=== PATIENT | male | born 1955 | race Caucasian/White ===

== ENCOUNTER 2018-01-17 18:57 | Observation (INO) ==
--- NOTE | 2018-01-17 19:42 | ED ---
HPI General Chief complaint: Chest Pain Stated complaint: Cardiac Complaint Time Seen by Provider: 01/17/18 19:19 Source: patient Limitations: no limitations History of Present Illness HPI narrative: The patient is a 62 year old male who presents to the [facility] emergency department with a history of chest pain that he reports is in the lower middle area of his chest that began yesterday after eating dinner between 5:30 and 6 PM. The patient reports that the pain is a tightening sensation. He reports that it has been constant and is currently a 1-2 out of 10 in severity. He reports that it feels similar to indigestion. He reports that he has not had any recent problems with indigestion as he has been on a diet and exercising regularly. He reports that he has lost 40 pounds in the last couple of months. He denies having any history of coronary artery disease. He reports that he has been experiencing some shortness of breath with exertion. He reports having nausea and actually induced vomiting 3 times today to see if this would help with his symptoms. He denies having any radiation of pain. He denies having any diaphoresis. The patient reports that he went to his local urgent care center for evaluation. He reports that this is where he receives his primary care. He reports that he had an EKG done that showed a right bundle branch block which was new for him, therefore he was sent to the emergency department for evaluation and treatment. He denies any recent prolonged travel. He denies having any lower extremity edema, calf pain, or erythema. He denies having any prior history of myocardial infarction or coronary artery disease. He reports having a history of hypertension that he treats with an [id number] supplement. He denies having any known history of hyperlipidemia or diabetes mellitus. He reports that his last laboratory studies were done a couple of years ago. On review of systems otherwise, the patient denies having any known recent fevers, cough or congestion, neck pain, abdominal pain, diarrhea, urinary symptoms, or neurologic symptoms. The patient reports that he last moved his bowels yesterday morning. He reports that he normally moves his bowels every other day. He denies having any blood in stool or black or tarry stools. Related Data Home Medications Medication Instructions Recorded Confirmed diphenhydramine HCl [Benadryl] 50 mg PO DAILY PRN 01/17/18 01/17/18 ibuprofen 400 mg PO DAILY 01/17/18 01/17/18 omeprazole magnesium [Prilosec OTC] 20 mg PO DAILY 01/17/18 01/17/18 Allergies Allergy/AdvReac Type Severity Reaction Status Date / Time No Known Allergies Allergy Unverified 01/17/18 19:33 Review of Systems ROS Unobtainable All other systems reviewed negative except as stated in HPI PMFSH History History Provided By: Patient Medical History Medical History Arthritis (Acute) Diverticulitis (Acute) GERD (gastroesophageal reflux disease) (Acute) Hiatal hernia (Acute) Hypertension (Acute) Umbilical hernia (Acute) Surgical History Surgical History H/O repair of right rotator cuff (Acute) History of right cataract surgery (Acute) History of total bilateral knee replacement (Acute) Social History Social History Substance History: No History of Abuse Second Hand Smoke Exposure: No Smoking Status: Never smoker Smoking End Date: quit 26 years ago. How Often Do You Have a Drink Containing Alcohol: Never Exam Const General: cooperative, no acute distress and well developed Nutritional Appearance: well nourished Orientation: alert, awake and oriented x3 HENMT Head: normocephalic and atraumatic Nose: no nasal discharge and no epistaxis Mouth: moist mucous membranes Eyes Sclera: normal sclerae Pupils: PERRL Neck Neck: trachea midline and no JVD Resp Effort & Inspection: no use of accessory muscles Auscultation: clear to auscultation bilaterally Cardio Rate: tachycardic (Sinus tachycardia in the upper 90s to low 100s ) Rhythm: regular rhythm Heart Sounds: no gallops, no murmurs and no rubs GI Inspection: abnormal to inspection (The patient has a palpable umbilical hernia that is easily reducible on examination.) and non-distended Palpation: soft, no hepatosplenomegaly and nontender Auscultation: normal bowel sounds Back/Spine/Pelvis Back: no CVA tenderness Skin General: dry skin (warm) Neuro General: alert, awake and oriented x3 Cranial Nerves: other (No facial asymmetry.) Speech: speech normal Motor: no movement abnormalities noted Extrem General: normal to inspection (No calf tenderness on palpation.), no clubbing, no cyanosis and no edema Psych Mood: congruent mood Affect: normal affect Judgment: judgment good Course Initial Documented Vital Signs Pulse Rate 102 H 01/17/18 19:18 Respiratory Rate 18 01/17/18 19:18 Blood Pressure 188/112 H 01/17/18 19:18 Pulse Oximetry 95 01/17/18 19:18 Last Documented Vital Signs Temperature 97.5 F L 01/18/18 04:00 Pulse Rate 80 01/18/18 04:00 Respiratory Rate 17 01/18/18 04:00 Blood Pressure 132/83 01/18/18 04:00 Pulse Oximetry 95 01/18/18 04:00 Medical Decision Making MDM Narrative Medical decision making narrative: During the course of the patient's emergency department visit, the patient's history, examination, and differential diagnosis were reviewed with the patient. The patient was placed on a costume director with oximetry and frequent blood pressure monitoring. The patient had IV access obtained and blood work sent for analysis. Diagnostic evaluation was started for this patient's reported chest tightness that began yesterday. The patient was initially provided aspirin 324 mg p.o. 1, nitroglycerin sublingual every 5 minutes 3 as needed chest pain. Nitroglycerin 1 inch to the chest wall was applied. The patient's laboratory studies are remarkable for a white count of 12, platelets 347, neutrophil percent 90.2, hemoglobin is 14.6, PT 10.5, PTT 28.9, d -dimer is 0.43 decreasing likelihood of pulmonary embolism in this patient with no other significant risk factors. Chemistries remarkable for troponin I of less than 0.02, glucose 110, BUN 23, BNP is 5, lipase 119, magnesium 2.2. The patient had a chest x-ray done that shows no evidence of acute cardiopulmonary disease. The patient's results were discussed with the patient, including the plan of care. I explained that further testing and/ or monitoring is indicated based on the patient's history, examination, and/ or laboratory findings. Therefore, I recommended admission for additional evaluation. The patient expressed understanding and was agreeable with this plan. The patient was admitted to the hospital in stable condition and sent to a bed under the care of the chest pain center. Differential Diagnosis Differential Diagnosis: Acute coronary syndrome, versus pulmonary embolism, versus aortic dissection, versus pneumonia, versus acid reflux, versus new onset congestive heart failure Medical Records Medical records reviewed: Yes I reviewed the patient's medical records. Lab Data Lab results reviewed: Yes I reviewed the patient's lab results. Result diagrams: 01/17/18 19:40 01/17/18 19:40 Lab Results 01/17/18 01/17/18 01/17/18 Range/Units 19:40 19:40 19:40 WBC 12.0 H (4.0-11.0) th/mm3 RBC 4.61 (4.50-5.90) mil/mm3 Hgb 14.6 (13.0-17.0) gm/dL Hct 41.0 (39.0-51.0) % MCV 88.9 (80.0-100.0) fL MCH 31.7 (27.0-34.0) pg MCHC 35.6 (32.0-36.0) % RDW 15.2 (11.6-17.2) % Plt Count 347 (150-450) th/mm3 MPV 8.0 (7.0-11.0) fL Neut % (Auto) 90.2 H (16.0-70.0) % Lymph % (Auto) 4.5 L (9.0-44.0) % [place] % (Auto) 4.9 (0.0-8.0) % Eos % (Auto) 0.2 (0.0-4.0) % Baso % (Auto) 0.2 (0.0-2.0) % Neut # (Auto) 10.8 H (1.8-7.7) th/mm3 Lymph # (Auto) 0.5 L (1.0-4.8) th/mm3 [place] # (Auto) 0.6 (0.0-0.9) th/mm3 Eos # (Auto) 0.0 (0.0-0.4) th/mm3 Baso # (Auto) 0.0 (0.0-0.2) th/mm3 WBC Differential . Differential Comment Auto diff final PT 10.5 (9.8-11.6) sec INR 1.0 Ratio APTT 28.9 (24.3-30.1) sec D-Dimer Quant (PE/DVT) 0.43 (0.00-0.50) mg/L FEU Sodium 139 (136-145) meq/L Potassium 4.0 (3.5-5.1) meq/L Chloride 105 (98-107) meq/L Carbon Dioxide 25.4 (21.0-32.0) meq/L Anion Gap 9 (5-15) meq/L BUN 23 H (7-18) mg/dL Creatinine 0.83 (0.60-1.30) mg/dL Estimated GFR Greater than 89 (>89) mL/min Random Glucose 110 H (74-106) mg/dL Calcium 9.0 (8.5-10.1) mg/dL Magnesium 2.2 (1.5-2.5) mg/dL Total Bilirubin 0.5 (0.2-1.0) mg/dL AST 17 (15-37) U/L ALT 32 (12-78) U/L Alkaline Phosphatase 101 (45-117) U/L Total Creatine Kinase 59 (39-308) U/L Troponin I Less than 0.02 L (0.02-0.05) ng/mL B-Natriuretic Peptide (0-100) pg/mL Total Protein 7.5 (6.4-8.2) g/dL Albumin 3.6 (3.4-5.0) g/dL Lipase 119 (73-393) U/L 01/17/18 01/17/18 01/18/18 Range/Units 19:40 22:50 01:40 WBC (4.0-11.0) th/mm3 RBC (4.50-5.90) mil/mm3 Hgb (13.0-17.0) gm/dL Hct (39.0-51.0) % MCV (80.0-100.0) fL MCH (27.0-34.0) pg MCHC (32.0-36.0) % RDW (11.6-17.2) % Plt Count (150-450) th/mm3 MPV (7.0-11.0) fL Neut % (Auto) (16.0-70.0) % Lymph % (Auto) (9.0-44.0) % [place] % (Auto) (0.0-8.0) % Eos % (Auto) (0.0-4.0) % Baso % (Auto) (0.0-2.0) % Neut # (Auto) (1.8-7.7) th/mm3 Lymph # (Auto) (1.0-4.8) th/mm3 [place] # (Auto) (0.0-0.9) th/mm3 Eos # (Auto) (0.0-0.4) th/mm3 Baso # (Auto) (0.0-0.2) th/mm3 WBC Differential Differential Comment PT (9.8-11.6) sec INR Ratio APTT (24.3-30.1) sec D-Dimer Quant (PE/DVT) (0.00-0.50) mg/L FEU Sodium (136-145) meq/L Potassium (3.5-5.1) meq/L Chloride (98-107) meq/L Carbon Dioxide (21.0-32.0) meq/L Anion Gap (5-15) meq/L BUN (7-18) mg/dL Creatinine (0.60-1.30) mg/dL Estimated GFR (>89) mL/min Random Glucose (74-106) mg/dL Calcium (8.5-10.1) mg/dL Magnesium (1.5-2.5) mg/dL Total Bilirubin (0.2-1.0) mg/dL AST (15-37) U/L ALT (12-78) U/L Alkaline Phosphatase (45-117) U/L Total Creatine Kinase 63 59 (39-308) U/L Troponin I Less than 0.02 L Less than 0.02 L (0.02-0.05) ng/mL B-Natriuretic Peptide 5 (0-100) pg/mL Total Protein (6.4-8.2) g/dL Albumin (3.4-5.0) g/dL Lipase (73-393) U/L Imaging Data Radiologist's impression: Chest X-Ray 01/17/18 19:33 CONCLUSION: Negative for acute process ECG Data Attestation: I personally reviewed and interpreted this ECG as follows: Interpretation: The patient had a EKG done on arrival that shows a sinus rhythm heart rate of 98, QRS duration 137 the the [address]-T wave abnormalities are noted with a right bundle branch block noted. T waves are inverted in lead III, aVF, V1, V2, V3, V4. Discharge Plan Discharge Disposition Patient Disposition: 30 Still Patient Discharge Details Diagnosis: Chest pain, rule out acute myocardial infarction Physicians Team ED Provider: Sandy Trinidad Primary Care Provider: Primary Care Gissel Johnson Attending Provider: Jeanmarie Houser Discharge Interventions Interventions: ED Discharge Assessment Last Done: 01/18/18 01:44 Vital Signs Last Done: 01/17/18 21:30 Status ED Status: Left Department Discharge Information Discharge Date/Time: 01/18/18 01:44
[2018-01-17 20:01] LABS: Baso % (Auto) 0.2 % (0.0-2.0); Eos % (Auto) 0.2 % (0.0-4.0); Hemoglobin 14.6 gm/dL (13.0-17.0); Lymph # (Auto) 0.5 th/mm3 (1.0-4.8); Lymph % (Auto) 4.5 % (9.0-44.0); Mean Corpuscular HGB Conc 35.6 % (32.0-36.0); Mean Corpuscular Hemoglobin 31.7 pg (27.0-34.0); Mean Corpuscular Volume 88.9 fL (80.0-100.0); Mono # (Auto) 0.6 th/mm3 (0.0-0.9); Mono % (Auto) 4.9 % (0.0-8.0); Neut # (Auto) 10.8 th/mm3 (1.8-7.7); Neut % (Auto) 90.2 % (16.0-70.0); Platelet Count 347 th/mm3 (150-450); Red Blood Count 4.61 mil/mm3 (4.50-5.90); Red Cell Distribution Width 15.2 % (11.6-17.2)
[2018-01-17 20:15] LABS: Activated Partial Thrombo Time 28.9 sec (24.3-30.1); D-Dimer 0.43 mg/L FEU (0.00-0.50); Prothrombin Time 10.5 sec (9.8-11.6)
[2018-01-17 20:25] LABS: Alanine Aminotransferase 32 U/L (12-78); Albumin 3.6 g/dL (3.4-5.0); Anion Gap 9 meq/L (5-15); Aspartate Aminotransferase 17 U/L (15-37); Blood Urea Nitrogen 23 mg/dL (7-18); Carbon Dioxide 25.4 meq/L (21.0-32.0); Chloride 105 meq/L (98-107); Glomerular Filtration Rate Greater Than 89 mL/min (>89); Glucose,Random 110 mg/dL (74-106); Lipase 119 U/L (73-393); Magnesium 2.2 mg/dL (1.5-2.5); Sodium 139 meq/L (136-145)
--- NOTE | 2018-01-17 20:27 | XR ---
EXAM DATE: 01/17/2018 8:14 PM EDT AGE/SEX: 62 years / Male INDICATIONS: Patient felt nauseous after eating dinner last night. CLINICAL DATA: This is the patient's initial encounter. Patient reports that signs and symptoms have been present for 2 days and indicates a pain score of 0/10. MEDICAL/SURGICAL HISTORY: None. None. COMPARISON: No prior exams available for comparison. FINDINGS: A single AP view of the chest demonstrates the lungs to be symmetrically aerated without evidence of mass, infiltrate or effusion. The cardiomediastinal contours are unremarkable. Osseous structures a re intact. CONCLUSION: Negative for acute process Electronically signed by: Romeo Mohr MD 01/17/2018 8:26 PM EDT
[2018-01-17 20:29] LABS: Alkaline Phosphatase 101 U/L (45-117); Total Protein 7.5 g/dL (6.4-8.2)
[2018-01-17 20:30] LABS: Creatine Kinase 59 U/L (39-308)
[2018-01-17] MEDS ORDERED: Acetaminophen 500 MG Tablet PO PRN (22:23)
[2018-01-17 23:26] LABS: Creatine Kinase 63 U/L (39-308)
[2018-01-18 02:30] LABS: Creatine Kinase 59 U/L (39-308)
--- NOTE | 2018-01-18 09:36 | P.HPCA ---
History of Present Illness Primary Care Physician: No Primary Care Physician Chief Complaint: Chest tightness History of Present Illness: 62-year-old male with history of GERD, hiatal hernia, and hypertension ( currently not taking medication) presents emergency room for further evaluation of chest pain, nausea, and vomiting. Onset Thursday evening after eating supper out. Developed nausea and feeling ill all evening. Jakin so bad induced vomiting which helped relieving the nausea for a short time. Thursday nausea continued with accompanying 3 nonbloody emesis with accompanied intermittent, substernal chest tightness. No radiation. Associated symptoms mild dyspnea. Denied diaphoresis. Denies similar pain in the past. No precipitating or relieving factors. Went to urgent care Thursday afternoon and was directed to ER for further evaluation due to chest tightness. Hurts to take a deep breath. Similar pain 3-4 years ago when blood pressure elevated in 200s. Cardiac stress testing completed at that time and were normal. Placed on lisinopril and told discomfort related to elevated blood pressure and stress. "Weaned" himself off lisinopril and currently taking a blood pressure supplement. Continues to experience chest tightness. Past cardiac testing Cardiac stress testing 4 years ago reported to be normal. No known CAD. Rep - Diagnosis (1) Chest pain, atypical (2) H/O: hypertension Review of Systems All other systems reviewed negative except as stated in HPI PMFSH - History History Provided By: Patient - Medical History Medical History: Medical History (Last Reviewed 01/17/18 @ 19:38 by Sandy Trinidad MD) Arthritis Diverticulitis GERD (gastroesophageal reflux disease) Hiatal hernia Hypertension Umbilical hernia - Surgical History Surgical History: Surgical History (Last Reviewed 01/17/18 @ 19:38 by Sandy Trinidad MD) H/O repair of right rotator cuff History of right cataract surgery History of total bilateral knee replacement - Tobacco History Second Hand Smoke Exposure: No Smoking Status: Never smoker Smoking End Date: quit 26 years ago. - Alcohol History How Often Do You Have a Drink Containing Alcohol: Never - Substance Use History Substance History: No History of Abuse - Immunization History Tetanus Immunization: Unsure Hx Influenza Vaccine This Season: No Medications and Allergies Active Medications: Active Medications Acetaminophen (Tylenol) 500 mg PO Q4H PRN PRN Reason: HEADACHE Nitroglycerin (Nitrostat Sl) 0.4 mg SL Q5M PRN PRN Reason: CHEST PAIN Last Admin: 01/17/18 20:38 Dose: 0.4 mg Sodium Chloride (Ns Flush) 2 ml IV.FLUSH UNSCH PRN PRN Reason: FLUSH AFTER USING IV ACCESS Sodium Chloride (Ns Flush) 2 ml IV.FLUSH BID DARBY Sodium Chloride (Ns Flush) 2 ml IV.FLUSH PRN PRN PRN Reason: FLUSH AFTER USING IV ACCESS Allergies Allergy/AdvReac Type Severity Reaction Status Date / Time No Known Allergies Allergy Unverified 01/17/18 19:33 Home Medications Medication Instructions Recorded Confirmed Type diphenhydramine HCl [Benadryl] 50 mg PO DAILY PRN 01/17/18 01/17/18 History ibuprofen 400 mg PO DAILY 01/17/18 01/17/18 History omeprazole magnesium [Prilosec OTC] 20 mg PO DAILY 01/17/18 01/17/18 History Exam Vital signs: Vital Signs 01/17/18 19:18 01/17/18 20:13 01/17/18 20:14 Temperature Pulse Rate 102 H Respiratory Rate 18 Blood Pressure 188/112 H Blood Pressure [Left Arm] 150/80 H Blood Pressure [Right Arm] 150/83 H Pulse Oximetry 95 94 L 01/17/18 21:30 01/18/18 01:00 01/18/18 01:54 Temperature 98.7 F 98.0 F Pulse Rate 96 H 79 85 Respiratory Rate 18 16 16 Blood Pressure 121/78 128/89 135/81 Blood Pressure [Left Arm] Blood Pressure [Right Arm] Pulse Oximetry 93 L 95 93 L 01/18/18 04:00 01/18/18 08:00 Temperature 97.5 F L 98.0 F Pulse Rate 80 86 Respiratory Rate 17 20 Blood Pressure 132/83 132/77 Blood Pressure [Left Arm] Blood Pressure [Right Arm] Pulse Oximetry 95 94 L Intake & Output 01/17/18 01/18/18 01/18/18 18:59 06:59 18:59 Weight 99.79 kg Narrative: male who appears older than stated age, obese, very pleasant. - Constitutional no acute distress - Routine HEENT Exam Head: Present: normocephalic, atraumatic Eye: Present: EOMI, PERRL, normal accommodation ENT: Present: mucous membranes moist - Routine Neck Exam Present: supple, full ROM. Absent: JVD, carotid bruit - Routine Chest/Breast/Axilla Exam Chest wall: Absent: tenderness - Routine Respiratory Exam Present: CTA bilaterally. Absent: rales, rhonchi, wheezes, crackles - Routine Cardiovascular Exam Present: RRR. Absent: murmur, gallop, rubs - Routine Abdominal Exam Present: soft, normoactive bowel sounds. Absent: tenderness, distended, rebound , guarding, firm - Routine Extremities Exam Present: full ROM, pulses intact. Absent: edema, calf tenderness - Routine Skin Exam Present: intact, dry, warm Comments: Heavily tattooed - Routine Neurological Exam Present: alert, oriented X3, CN II-XII intact, moving all extremities, normal tone, normal speech - Routine Psychiatric Exam Present: normal affect, normal thought process, cooperative, good insight, good judgment Results 01/17/18 19:40 01/17/18 19:40 Cardiac Enzymes 01/17/18 01/17/18 01/17/18 Range/Units 19:40 19:40 22:50 AST 17 (15-37) U/L Troponin I Less than 0.02 L Less than 0.02 L (0.02-0.05) ng/mL B-Natriuretic Peptide 5 (0-100) pg/mL 01/18/18 Range/Units 01:40 AST (15-37) U/L Troponin I Less than 0.02 L (0.02-0.05) ng/mL B-Natriuretic Peptide (0-100) pg/mL Coagulation 01/17/18 01/17/18 Range/Units 19:40 19:40 PT 10.5 (9.8-11.6) sec APTT 28.9 (24.3-30.1) sec B-Natriuretic Peptide 5 (0-100) pg/mL CBC 01/17/18 Range/Units 19:40 WBC 12.0 H (4.0-11.0) th/mm3 RBC 4.61 (4.50-5.90) mil/mm3 Hgb 14.6 (13.0-17.0) gm/dL Hct 41.0 (39.0-51.0) % Plt Count 347 (150-450) th/mm3 Neut # (Auto) 10.8 H (1.8-7.7) th/mm3 Lymph # (Auto) 0.5 L (1.0-4.8) th/mm3 [place] # (Auto) 0.6 (0.0-0.9) th/mm3 Eos # (Auto) 0.0 (0.0-0.4) th/mm3 Baso # (Auto) 0.0 (0.0-0.2) th/mm3 Comprehensive Metabolic Panel 01/17/18 Range/Units 19:40 Sodium 139 (136-145) meq/L Potassium 4.0 (3.5-5.1) meq/L Chloride 105 (98-107) meq/L Carbon Dioxide 25.4 (21.0-32.0) meq/L BUN 23 H (7-18) mg/dL Creatinine 0.83 (0.60-1.30) mg/dL Calcium 9.0 (8.5-10.1) mg/dL AST 17 (15-37) U/L ALT 32 (12-78) U/L Alkaline Phosphatase 101 (45-117) U/L Total Protein 7.5 (6.4-8.2) g/dL Albumin 3.6 (3.4-5.0) g/dL Intake and Output 01/17/18 01/18/18 01/18/18 22:59 06:59 14:59 Other: Weight 99.79 kg EKG interpretations - EKG EKG results cardiology: sinus rhythm, normal axis, normal QRS, normal ST/T Caprini VTE Risk Assessment Caprini VTE Risk Assessment: Moderate/High Risk (score >= 2) Caprini Risk Assessment Model: Point Value = 1 Point Value = 2 Point Value = 3 Point Value = 5 Age 41-60 Minor surgery BMI > 25 kg/m2 Swollen legs Varicose veins or History of unexplained or recurrent spontaneous Oral contraceptives or hormone replacement Sepsis (< 1 month) Serious lung disease, including pneumonia (< 1 month) Abnormal pulmonary function Acute myocardial infarction Congestive heart failure (< 1 month) History of inflammatory bowel disease Medical patient at bed rest Age 61-74 Arthroscopic surgery Major open surgery (> 45 min) Laparoscopic surgery (> 45 min) Malignancy Confined to bed (> 72 hours) Immobilizing plaster cast Central venous access Age >= 75 History of VTE Family history of VTE Factor V Leiden Prothrombin [id number] Lupus anticoagulant Anticardiolipin antibodies Elevated serum homocysteine Heparin-induced thrombocytopenia Other congenital or acquired thrombophilia Stroke (< 1 month) Elective arthroplasty Hip, pelvis, or leg fracture Acute spinal cord injury (< 1 month) Prophylaxis Regimen: Total Risk Factor Score Risk Level Prophylaxis Regimen 0-1 Low Early ambulation 2 Moderate Order ONE of the following: *Sequential Compression Device (SCD) *Heparin 5000 units SQ BID 3-4 Higher Order ONE of the following medications: *Heparin 5000 units SQ TID *Enoxaparin/Lovenox 40 mg SQ daily (WT < 150 kg, CrCl > 30 mL/min) *Enoxaparin/Lovenox 30 mg SQ daily (WT < 150 kg, CrCl > 10-29 mL/min) *Enoxaparin/Lovenox 30 mg SQ BID (WT < 150 kg, CrCl > 30 mL/min) AND/OR *Sequential Compression Device (SCD) 5 or more Highest Order ONE of the following medications: *Heparin 5000 units SQ TID (Preferred with Epidurals) *Enoxaparin/Lovenox 40 mg SQ daily (WT < 150 kg, CrCl > 30 mL/min) *Enoxaparin/Lovenox 30 mg SQ daily (WT < 150 kg, CrCl > 10-29 mL/min) *Enoxaparin/Lovenox 30 mg SQ BID (WT < 150 kg, CrCl > 30 mL/min) AND *Sequential Compression Device (SCD) Assessment and Plan - Assessment (1) Chest pain, atypical Code(s): R07.89 - Other chest pain Status: Acute Onset Date: ~01/10/18 Plan: Admitted chest pain center. ACS ruled out 3 sets of EKGs and cardiac enzymes. Seen evaluated by Dr. Hany Parish. Proceed with chemical stress test as patient states he is unable to walk on treadmill due to chronic knee pain. Cardiac testing unremarkable, plans to discharge home with a follow-up with PCP. Discussed options of local [id number] clinics. Verbalized understanding and agreeable to plan of care. (2) H/O: hypertension Code(s): Z86.79 - Personal history of other diseases of the circulatory system Status: Chronic Plan: Continue to monitor. Consider resuming antihypertensive upon discharge. Support given on current weight loss and daily activity. Encouraged him to continue his efforts. Discussed consuming no more than 2000 mg sodium daily. H&P: Quality - VTE Deep Vein Thrombosis/Pulmonary Embolism Present on Admission: No
--- NOTE | 2018-01-18 10:39 | P.PNCA ---
Subjective Interval history: Patient was presented by the nurse practitioner the chart was then reviewed radiographic laboratory and electrocardiographic data was reviewed the patient was then seen and examined personally. I am in agreement with the documentation as entered with no additional information added Physical Exam Vital signs: Vital Signs 01/17/18 19:18 01/17/18 20:13 01/17/18 20:14 Temperature Pulse Rate 102 H Respiratory Rate 18 Blood Pressure 188/112 H Blood Pressure [Left Arm] 150/80 H Blood Pressure [Right Arm] 150/83 H Pulse Oximetry 95 94 L 01/17/18 21:30 01/18/18 01:00 01/18/18 01:54 Temperature 98.7 F 98.0 F Pulse Rate 96 H 79 85 Respiratory Rate 18 16 16 Blood Pressure 121/78 128/89 135/81 Blood Pressure [Left Arm] Blood Pressure [Right Arm] Pulse Oximetry 93 L 95 93 L 01/18/18 04:00 01/18/18 08:00 Temperature 97.5 F L 98.0 F Pulse Rate 80 86 Respiratory Rate 17 20 Blood Pressure 132/83 132/77 Blood Pressure [Left Arm] Blood Pressure [Right Arm] Pulse Oximetry 95 94 L Intake & Output 01/17/18 01/18/18 01/18/18 18:59 06:59 18:59 Weight 99.79 kg Narrative: Heavily tattooed white male in no acute distress Eyes PERRLA EOMI sclera clear Mouth mucous membranes moist and well papillated no lesions Neck supple no JVD masses nodes or bruits Chest clear to auscultation with no rales wheezes or rhonchi and good breath sounds Cardiovascular reveals a regular sinus rhythm no gallops rubs or murmurs Abdomen soft nontender no guarding or rebound Assessment and Plan - Plan Patient is ruled out for ACS using standard chest pain center protocol. He has documented right bundle branch block which is not new however further evaluation with a nuclear stress test was felt preferable to the standard exercise stress test for this reason. Should also be noted that he has had bilateral knee replacements as well as ability to walk is somewhat in question. He has been off his medications for hypertension for some time but is willing to restart them pending further evaluation and establishment with a local physician.
[2018-01-18] MEDS ORDERED: Regadenoson Inj 0.4 MG/5 ML Syringe IV.PUSH ONE (13:44)
--- NOTE | 2018-01-18 15:02 | NM ---
EXAM DATE: 01/18/2018 2:39 PM EDT AGE/SEX: 62 years / Male INDICATIONS:Angina. Right bundle branch block Midchest pain. CLINICAL DATA: This is the patient's initial encounter. Patient reports that signs and symptoms have been present for 1 day and indicates a pain score of 3/10. MEDICAL/SURGICAL HISTORY: Hypertension. Inguinal hernia repair. Bilateral knee replaced. COMPARISON: No prior exams available for comparison. DOSE: 11.0 mCi Tc 99m Myoview at rest 35.0 mCi [id number] at stress 0.4 mg Lexiscan STRESS SYMPTOMS: Dyspnea and dizzy. EJECTION FRACTION: >70 % TECHNIQUE: The patient underwent pharmacologic stress with infusion of prescribed dose. Continuous ECG tracing was monitored during stress. Gated SPECT imaging was performed after stress and conventi onal SPECT imaging was performed at rest. The examination was performed on a SPECT/CT scanner, both attenuation and non-corrected datasets were reviewed. FINDINGS: Distribution: The maximum perfused segment at stress is in the septal wall. Perfusion Study: The examination demonstrates moderate-sized, moderate in severity, reversible perf usion defects involving the anterior wall, lateral wall and portions of the septum. Gated Study: There are intact wall motion and wall thickening without hypokinetic or dyskinetic segm ents. The ejection fraction is calculated at >70%. RISK CATEGORY: High (>3% Annual Morality Rate) CONCLUSION: 1. Large reversible perfusion defects as above. Myocardial ischemia is not excluded. Electronically signed by: Josh Mohr MD 01/18/2018 3:01 PM EDT
[2018-01-18] MEDS ORDERED: Acetaminophen 325 MG Tablet PO PRN (16:05)
[2018-01-18] MEDS ORDERED: Bisacodyl 10 MG Supp RECTAL PRN (16:05)
[2018-01-18] MEDS ORDERED: oxyCODONE/Acetaminophen 10/325 Tablet PO PRN (16:07)
[2018-01-18] MEDS ORDERED: Naloxone Inj 0.4 MG/ML Vial IV.PUSH PRN (16:07)
[2018-01-18] MEDS ORDERED: Morphine Inj 4 MG/ML Vial IV.PUSH PRN ×3 (16:07)
[2018-01-18] MEDS ORDERED: Morphine Inj 4 MG/ML Vial IV.PUSH ONE (16:11)
[2018-01-18] MEDS ORDERED: Heparin 10,000 UNITS/10 ML Vial (for IV use) IV.PUSH STA (16:13)
[2018-01-18] MEDS ORDERED: Heparin Drip 25,000 UNIT/250 ML BAG IV.CONT PRN (16:13)
[2018-01-18] MEDS ORDERED: fentaNYL Citrate Inj 100 MCG/2 ML Ampul IV.PUSH SCH (16:15)
[2018-01-18] MEDS: Pantoprazole Sodium 20 MG DR Tablet PO SCH (18:09)
--- NOTE | 2018-01-18 20:14 | ECHRPT ---
Indication: HHD CONCLUSIONS The left ventricular systolic function is hyperdynamic with an estimated ejection fraction in the ra nge of 65- 70%. Normal left ventricular size. Wall thickness is normal. No definite regional wall motion abnorm alities are present. No definite valvular abnormalities. BP: / HR: Rhythm: Other MEASUREMENTS (Male / Female) Normal Values Technical Quality:Technically difficult study 2D ECHO LV Ejection Fraction MOD 4C 64.8 % LV Ejection Fraction 4C AL 66.9 % DOPPLER AV Peak Velocity 172.0 cm/s AV Peak Gradient 11.8 mmHg LVOT Peak Velocity 129.0 cm/s LVOT Peak Gradient 6.7 mmHg MV Area PHT 4.3 cm Mitral E Point Velocity 78.0 cm/s Mitral A Point Velocity 103.0 cm/s Mitral E to A Ratio 0.8 LV E' Lateral Velocity 7.8 cm/s Mitral E to LV E' Lateral Ratio 10.0 LV E' Septal Velocity 10.4 cm/s Mitral E to LV E' Septal Ratio 7.5 FINDINGS LEFT VENTRICLE The left ventricular systolic function is hyperdynamic with an estimated ejection fraction in the ra nge of 65- 70%. Normal left ventricular size. Wall thickness is normal. No definite regional wall motion abnorm alities are present. RIGHT VENTRICLE Normal right ventricular size and systolic function. LEFT ATRIUM The left atrial size is normal. RIGHT ATRIUM The right atrial size is normal. ATRIAL SEPTUM Normal atrial septal thickness without atrial level shunting by limited color doppler interrogation. AORTA The aortic root and proximal ascending aorta are normal in size on limited imaging. MITRAL VALVE Structurally normal mitral valve. No mitral valve stenosis or regurgitation. AORTIC VALVE The aortic valve is not well visualized. TRICUSPID VALVE Structurally normal tricuspid valve. No tricuspid valve stenosis or regurgitation. PULMONARY VALVE The pulmonary valve is not well visualized. VESSELS The inferior vena cava is normal in size. PERICARDIUM No pericardial effusion. Guzman Parks MD (Electronically Signed) Final Date:18 January 2018 20:12
[2018-01-18] MEDS ORDERED: Temazepam 15 MG Capsule PO PRN (21:00)
[2018-01-18] MEDS: Senna/Docusate Sodium 8.6/50 MG Tablet PO SCH (21:35)
[2018-01-18] MEDS: Metoprolol Tartrate 25 MG Tablet PO SCH (21:35)
[2018-01-19] MEDS ORDERED: Chlorhexidine Gluconate 2% 1 Pack (2 Cloths) TOPICAL SCH (04:15)
[2018-01-19 04:49] LABS: Baso % (Auto) 0.3 % (0.0-2.0); Eos # (Auto) 0.3 th/mm3 (0.0-0.4); Hematocrit 40.1 % (39.0-51.0); Hemoglobin 13.4 gm/dL (13.0-17.0); Lymph # (Auto) 0.7 th/mm3 (1.0-4.8); Lymph % (Auto) 7.6 % (9.0-44.0); Mean Corpuscular HGB Conc 33.3 % (32.0-36.0); Mean Corpuscular Hemoglobin 29.9 pg (27.0-34.0); Mean Corpuscular Volume 89.9 fL (80.0-100.0); Mean Platelet Volume 7.9 fL (7.0-11.0); Mono # (Auto) 0.7 th/mm3 (0.0-0.9); Mono % (Auto) 6.8 % (0.0-8.0); Neut # (Auto) 7.9 th/mm3 (1.8-7.7); Neut % (Auto) 82.3 % (16.0-70.0); Platelet Count 314 th/mm3 (150-450); Red Blood Count 4.47 mil/mm3 (4.50-5.90); Red Cell Distribution Width 15.2 % (11.6-17.2); White Blood Count 9.6 th/mm3 (4.0-11.0)
[2018-01-19] MEDS ORDERED: Sodium Chlor 0.9% Inj 500 ML IV.SIG SCH (05:00)
[2018-01-19 05:04] LABS: Prothrombin Time 10.1 sec (9.8-11.6)
[2018-01-19 05:24] LABS: Alanine Aminotransferase 27 U/L (12-78); Alkaline Phosphatase 86 U/L (45-117); Anion Gap 6 meq/L (5-15); Aspartate Aminotransferase 11 U/L (15-37); Blood Urea Nitrogen 25 mg/dL (7-18); Calcium 8.5 mg/dL (8.5-10.1); Chloride 106 meq/L (98-107); Chol/HDL Ratio 3.01 Ratio; Cholesterol 153 mg/dL (120-200); Free T4 (Free Thyroxine) 1.07 ng/dL (0.76-1.46); Glomerular Filtration Rate Greater Than 89 mL/min (>89); Glucose,Random 107 mg/dL (74-106); HDL Cholesterol 50.8 mg/dL (40.0-60.0); LDL Cholesterol,Calculated 86 mg/dL (0-99); Magnesium 2.2 mg/dL (1.5-2.5); Phosphorus 4.6 mg/dL (2.5-4.9); Potassium 4.1 meq/L (3.5-5.1); Sodium 141 meq/L (136-145); Total Protein 6.4 g/dL (6.4-8.2); Triglycerides 79 mg/dL (42-150)
[2018-01-19] MEDS ORDERED: Heparin - SQ 10,000 UNITS/ML Vial ONE (05:30)
[2018-01-19] MEDS ORDERED: Sod Chloride 0.9% Inj 1,000 ML IV.CONT SCH (06:00)
[2018-01-19] MEDS ORDERED: Sod Chloride 0.9% Inj 1,000 ML IV.SIG SCH (06:00)
[2018-01-19] MEDS: Pantoprazole Sodium 20 MG DR Tablet PO SCH (08:53)
[2018-01-19] MEDS: Metoprolol Tartrate 25 MG Tablet PO SCH (08:53)
[2018-01-19] MEDS: Senna/Docusate Sodium 8.6/50 MG Tablet PO SCH (08:54)
[2018-01-19 09:07] VITALS: RESP 18
[2018-01-19 12:46] VITALS: BP 131/85; PULSE 76; TEMP 98.8
--- NOTE | 2018-01-19 14:21 | P.PN ---
Subjective Interval history: Follow-up for chest pain, abnormal nuclear stress test. Patient is currently doing well. However she complains of chest tightness without any associated symptoms. No nausea vomiting or diaphoresis. No fever or chills. He is waiting for cardiac cath this afternoon. Physical Exam Vital signs: Vital Signs 01/18/18 16:00 01/18/18 17:39 01/18/18 20:09 Temperature 98.7 F Pulse Rate 89 Respiratory Rate 18 16 Blood Pressure 140/79 139/79 Pulse Oximetry 92 L 91 L 01/18/18 22:35 01/19/18 01:08 01/19/18 04:00 Temperature 98.4 F 98.1 F Pulse Rate 91 H 75 Respiratory Rate 17 15 17 Blood Pressure 127/71 129/81 Pulse Oximetry 93 L 94 L 01/19/18 08:00 01/19/18 12:00 Temperature 98.7 F 98.8 F Pulse Rate 80 76 Respiratory Rate 18 18 Blood Pressure 138/87 131/85 Pulse Oximetry 96 95 Intake & Output 01/18/18 01/19/18 01/19/18 18:59 06:59 18:59 Other: # Bowel Movements 1 Narrative: GENERAL: Alert, oriented 3, NAD. SKIN: Warm and dry. HEAD: Normocephalic. EYES: No scleral icterus. No injection or drainage. NECK: Supple, trachea midline. No JVD or lymphadenopathy. CARDIOVASCULAR: Regular rate and rhythm without murmurs, gallops, or rubs. RESPIRATORY: Breath sounds equal bilaterally. No accessory muscle use. GASTROINTESTINAL: Abdomen soft, non-tender, nondistended. MUSCULOSKELETAL: No cyanosis, or edema. BACK: Nontender without obvious deformity. No CVA tenderness. Results - Labs CBC & Chem 7: 01/19/18 04:30 01/19/18 04:20 Laboratory Results - last 24 hr 01/18/18 01/19/18 01/19/18 20:30 04:20 04:20 WBC RBC Hgb Hct MCV MCH MCHC RDW Plt Count MPV Neut % (Auto) Lymph % (Auto) Vilas % (Auto) Eos % (Auto) Baso % (Auto) Neut # (Auto) Lymph # (Auto) Vilas # (Auto) Eos # (Auto) Baso # (Auto) WBC Differential Differential Comment PT 10.1 INR 1.0 APTT 34.9 H D 36.0 H Sodium 141 Potassium 4.1 Chloride 106 Carbon Dioxide 29.0 Anion Gap 6 BUN 25 H Creatinine 0.72 Estimated GFR Greater than 89 Random Glucose 107 H Calcium 8.5 Phosphorus 4.6 Magnesium 2.2 Total Bilirubin 0.5 AST 11 L ALT 27 Alkaline Phosphatase 86 Total Protein 6.4 D Albumin 3.0 L D Triglycerides 79 Cholesterol 153 LDL Cholesterol, Calc 86 HDL Cholesterol 50.8 Cholesterol/HDL Ratio 3.01 TSH 1.650 Free T4 1.07 01/19/18 01/19/18 04:30 13:18 WBC 9.6 RBC 4.47 L Hgb 13.4 Hct 40.1 MCV 89.9 MCH 29.9 MCHC 33.3 RDW 15.2 Plt Count 314 MPV 7.9 Neut % (Auto) 82.3 H Lymph % (Auto) 7.6 L Vilas % (Auto) 6.8 Eos % (Auto) 3.0 Baso % (Auto) 0.3 Neut # (Auto) 7.9 H Lymph # (Auto) 0.7 L Vilas # (Auto) 0.7 Eos # (Auto) 0.3 Baso # (Auto) 0.0 WBC Differential . Differential Comment Auto diff final PT INR APTT 53.7 H D Sodium Potassium Chloride Carbon Dioxide Anion Gap BUN Creatinine Estimated GFR Random Glucose Calcium Phosphorus Magnesium Total Bilirubin AST ALT Alkaline Phosphatase Total Protein Albumin Triglycerides Cholesterol LDL Cholesterol, Calc HDL Cholesterol Cholesterol/HDL Ratio TSH Free T4 - Imaging Impressions Myocardial Perfusion Scan Nuc Med 01/18/18 00:00 CONCLUSION: 1. Large reversible perfusion defects as above. Myocardial ischemia is not excluded. Assessment and Plan - Plan Mr. Medrano is a 62-year-old male with a history of GERD, hiatal hernia, hypertension who was admitted to chest pain center on 01/18/2018. A nuclear stress test shows significant reversible ischemia. Subsequently patient was admitted to hospitalist service and cardiology was consulted. Cardiology recommended cardiac catheterization. Chest pain Probable unstable angina Abnormal nuclear stress test -Chest tightness is concerning for unstable angina. -Cardiac catheterization today. -Currently on heparin drip. -We will start patient on aspirin 81 mg daily, Lipitor 40 mg nightly. -Continue nitroglycerin as well as metoprolol tartrate 25 mg p.o. twice daily. Hypertension Hyperlipidemia -Currently normotensive. If needed, we could consider carvedilol instead of metoprolol. -We will start Lipitor 40 mg today. Full code. Heparin drip.
[2018-01-19] MEDS ORDERED: Iohexol 350 MG/ML 100 ML Vial (for Cath Lab) IVCONTRAST ONE (15:10)
[2018-01-19] MEDS ORDERED: Heparin 10,000 UNITS/10 ML Vial (for IV use) ONE (15:18)
[2018-01-19] MEDS ORDERED: Heparin/NS PF Inj 1,000 ML ONE (15:18)
[2018-01-19] MEDS ORDERED: fentaNYL Citrate Inj 100 MCG/2 ML Ampul ONE (15:36)
--- NOTE | 2018-01-19 15:56 | CATHPROC ---
[facility] HIS Report Study Information Study Number Admission Scheduled Start Study Start [id number] Jan 17 2018 9:34PM 01/19/2018 Jan 19 2018 3:13PM [place] Service Cardiac Catheterization Admit Source Facility Department Emergency department [facility] [employer] Physician and Clinical Staff Initial Guzman De La Fuente Grated Cheese Maker Amador AvilezRN Recorder Che Cuello,RT(R) (BS) Scrub María De La O,OXYGEN THERAPIST TECH2 Procedures Performed Procedure Location (Site) Vessel Name Coronary Angiograms LCA Left Coronary Coronary Angiograms RCA Right Coronary L Heart Cath LV Gram-hand inj. LV LV Ventricle Wire insertion Radial (right) Radial Art. Equipment Time Oracle Soa Architect Description Size Mfg Part Number Used/Scraped TRANSDUCER, TRUWAVE [id number] 15:19 ESPINO LLAMAS * Used W/STOCKCOCK *[id number] *[id number] 15:19 MALLINCKRODT SYRINGE, ANGIOMAT 150ML 150ML *[id number] Used 2S MEDICAL CONCEPT DRAPE, RADIAL FEMORAL FULL 15:19 * [id number] *[id number] Used DEVELOPMENT BODY [id number] 15:19 SupportBee BLANKET,WARM AIR CCL * Used *[id number] 15:19 SupportBee PACK, CCL CUSTOM * Used *[id number] 15:19 SupportBee SUPPORT, ARTERIAL ADULT [id number] *[id number] Used [id number] 15:19 DanceOn PACER PEN, SKIN DUAL W/ RULER * Used *[id number] BAND, RADIAL COMPRESSION TR [id number] 15:48 Unidym 24CM Used SHORT 24 *[id number] SHEATH, FR6 RADIAL PRELUDE 15:19 Unidym FR 6 [id number] Used EASE 11CM [id number] 15:19 Unidym WIRE, EXCHANGE 260CM 3MMJ 260CM Used *[id number] 15:19 NAMIC MANIFOLD, 4 PORT * Used *[id number] 15:19 NYCOMED OMNIPAQUE, 350 MG, 150ML 150ML [id number] Used CATHETER, FR5 OPTITORQUE [id number] 15:22 TERGoIP Global MEDICAL FR 5 Used RADIAL TIG 4.0 *[id number] History: Current Medications Medication Dosage/Unit Route Frequency Last Date/Time Taken Beta Sun History: Allergies Allergy Reaction No Known Allergies History: Risk Factors Family History of Hypertension Dyslipidemia Previous NM Previous Heart Failure Premature CAD Yes No Yes No No Prior Valve Prior PCI Prior CABG Surgery No No No Cerebrovascular Peripheral Artery Chronic Lung On Dialysis Diabetes Disease Disease Disease No No No No No History: Symptoms/Diagnosis Selection Items Chest pain History: Stress Tests Stress or Imaging Studies Performed Yes Standard Exercise Stress Test No Stress Echo No Stress Test SPECT Stress Test SPECT Result Yes Positive Stress Test CMR No Cardiac CTA Coronary Calcium Score No No History: Other Current Smoker Method Quit Packs a Day Years Used Pack Years No Cigarettes 26 Years Ago 2 27 54 Labs Hgb (g/dl) Hct (%) WBC (l/cumm) Platelets (thousands) 11.60-17.00 35.00-51.00 4.00-11.00 150.00-450.00 13.4 40.1 9.6 314 Glucose (mg/dl) BUN (mg/dl) Creatinine (mg/dl) BUN:Creatinine (1:x) 74.00-106.00 7.00-18.00 0.50-1.30 10.00-20.00 107 25 0.7 35.7 Na (meq/l) K (meq/l) 136.00-145.00 3.50-5.10 141 4.1 INR (PTT:PT) 0.90-1.10 1 Troponin I (ng/ml) CPK-MB (ng/ML) 0.02-0.05 0.50-3.60 0.02 Not Drawn Medication Medication Total Dose (Bolus/Oral) Medication Total Dosage/Unit 1% XYLOCAINE 1 mL FENTANYL 50 mcg RADIAL COCKTAIL 1 units VERSED 1 mg Medications (Bolus/Oral) Medication Time Given Dosage/Unit Administered By Reason 1% XYLOCAINE 01/19/2018 3:36:50 PM 1 mL Guzman Parks 1 mL 1% XYLOCAINE given in lab by Guzman Parks in Right Radial via Subcutaneous. VERSED 01/19/2018 3:37:10 PM 1 mg Amador Avilez 1 mg VERSED given in lab by Amador Avilez, RN via Peripheral IV. Ntg 200mcg Verapamil 2.5mg Heparin RADIAL COCKTAIL 01/19/2018 3:37:15 PM 1 units Guzman Parks 2500U 1 units RADIAL COCKTAIL given in lab by Guzman Parks via Radial. Reason: Ntg 200mcg Verapamil 2.5mg H eparin 2500U. FENTANYL 01/19/2018 3:38:10 PM 50 mcg Amador Avilez 50 mcg FENTANYL given in lab by Amador Avilez RN via Peripheral IV. Medication (Drip) Medication Time Given Dosage/Unit Concentration/Unit Diluent (ml) Solution IV Solutions 01/19/2018 3:13:51 PM 0 mL (IV) 500 NaCl .9 IV Solutions given in lab by Amador Avilez RN in Right Antecubital via Peripheral IV. Pump/Drip Flow = 30 ml/hr using NaCl .9. Initial Case Assessment Cardiovascular HR Rhythm NIBP Chest Pain 84 reg 152/95 0 Edema Present Skin color Skin None Normal Warm Dry Circulatory - Right Pulses Dorsalis Pedis Femoral Radial 2 2 2 Scale (0,1,2,3,4,d) Scale (0,1,2,3,4,d) Circulatory - Lower Extremities Color Lower Right Color Lower Left Normal Normal Neurological State Oriented to time-place- Alert Moves all extremities person Respiration - General Respiration Rate SpO2 (%) (B/min) 13 96 Chronological Log Time Study Chronological Log 15:10:30 Patient arrived via Bed. 15:10:34 Patient Name, D.O.B, / Armband Verified By R.N. 15:13:37 Consent signed by the physician and the patient and verified by the [employer] staff. 15:13:37 Pre-op and post- op instructions given; patient acknowledges understanding of instructions. 15:13:41 Presedation assessment performed by [employer] RN. 15:13:43 Allens test performed on the right radial and ulnar artery. 15:13:45 Patient has been NPO for More than 6Hrs. 15:13:46 Skin Breakdown none per pt 15:13:46 Patient Warmer Placed on the Table. 15:13:49 Khari Prominences Protected 15:13:50 A # 20 IV was noted in the Antecubital (right). Grade = 0 IV Solutions given in lab by Amador Avilez RN in Right Antecubital via Peripheral IV. Pump/Drip Flow = 30 ml/hr using 15:13:51 NaCl .9. 15:13:51 History and physical on the chart or being dictated. Assessment: Initial Case, HR=84 BPM, Rhythm=reg, KRQY=521/95 mmhg, Chest Pain=0, Edema=None, Co sonny=Normal, Skin = Warm, Dry Right Pulses: Michael Ped=2, Femoral=2, Radial=2 15:13:52 Lower Right Extremities: Color=Normal Lower Left Extremities: Color=Normal Neurological: State=Alert, Ox3, HA Respiration: Resp=13 B/min, SpO2=96 % Vitals capture started with the following parameters, Patient=Adult, Interval=5 min, Initial Pr gppwsn=937 mmHg, 15:19:21 Deflation Rate=5 mmHg, Cuff placed on Left Arm 15:20:00 IWPR=611/95 mmhg, SpO2=97.0 %, Pain=0, Jason=10, Jung=2 15:22:56 Right Radial and right groin prepped with 2% chlorhexidine, and draped after a 3 min. waiti ng time. 15:23:44 Reference ECG taken 15:25:03 HR=80 bpm, HJVM=910/86 mmhg, SpO2=96.0 %, Resp=16 B/min, Pain=0, Jason=10, Jung=2 15:28:44 MD paged 15:29:29 MD responded 15:30:00 HR=80 bpm, YCTB=631/92 mmhg, SpO2=96.0 %, Resp=15 B/min, Pain=0, Jason=10, Jung=2 15:31:41 Pressure channel 1 zeroed. 15:32:47 MD arrived. 15:35:03 HR=78 bpm, PJXQ=848/82 mmhg, SpO2=95.0 %, Resp=13 B/min, Pain=0, Jason=10, Jung=2 Time Out. Correct patient, correct procedure, correct physician, labs, allergies, and equipment verified with clinical laboratory aide 15:36:02 team present. Fire risk assesment completed (see hard stop sheet for coding). Time Out Conc urred by MD and individual staff in procedure. 15:36:07 Case Start 15:36:50 1 mL 1% XYLOCAINE given in lab by Guzman Parks in Right Radial via Subcutaneous. 15:36:59 Access site was Right Radial Artery . A SHEATH, FR6 RADIAL PRELUDE EASE 11CM FR 6 was advanced into the Radial (right) using the Perc utaneous 15:37:06 technique. 15:37:10 1 mg VERSED given in lab by Amador Avilez, RN via Peripheral IV. 1 units RADIAL COCKTAIL given in lab by Guzman Parks via Radial. Reason: Ntg 200mcg Verapamil 2 .5mg Heparin 15:37:15 2500U. 15:38:10 50 mcg FENTANYL given in lab by Amador Avilez, RN via Peripheral IV. A CATHETER, FR5 OPTITORQUE RADIAL TIG 4.0 FR 5 was advanced over a wire. OMNIPAQUE, 350 MG, 150 ML 150ML 15:38:22 was used for injections. 15:39:49 The LCA was injected and visualized at various angles. OMNIPAQUE, 350 MG, 150ML 150ML used . Recorded Pressure: Ao, HR=92, Condition=Condition 1 15:39:55 (Aorta) Ao 111/73/91 15:40:04 HR=90 bpm, UAGA=075/76 mmhg, SpO2=95.0 %, Resp=17 B/min, Pain=0, Jason=10, Jung=2 15:41:42 The RCA was injected and visualized at various angles. OMNIPAQUE, 350 MG, 150ML 150ML used . After removing the current catheter a MPA-2 INFINITI CATHETER FR 6 was advanced over a WIRE, EX CHANGE 260CM 15:42:23 3MMJ 260CM. Recorded Pressure: LV, HR=56, Condition=Condition 1 15:44:09 (Left Ventricle) LV 123/4/20 15:44:49 The LV was manually injected with 8 cc's and visualized. OMNIPAQUE, 350 MG, 150ML 150ML use d. Recorded Pressure: LV, Ao, WC=553, Condition=Condition 1 15:44:56 (Left Ventricle) LV 115/4/7, (Aorta) Ao 127/65/86 15:45:05 HR=89 bpm, WEJE=699/68 mmhg, SpO2=94.0 %, Resp=15 B/min, Pain=0, Jason=10, Jung=2 15:45:32 A WIRE, EXCHANGE 260CM 3MMJ 260CM was inserted via Radial (right). 15:45:39 Catheter was removed 15:45:41 Wire removed 15:47:43 Case End (Physician broke scrub) 15:47:51 Catheter(s) removed without difficulty Radial Compression Device Used. 13 mLs of air placed in BAND, RADIAL COMPRESSION TR SHORT 24 24 CM. Affected 15:47:59 hand 94 % O2 saturation. 15:48:27 No case complications noted. 15:48:51 A Left Heart Cath was performed. 15:49:58 HR=83 bpm, DFJR=428/79 mmhg, SpO2=93.0 %, Resp=22 B/min, Pain=0, Jason=10, Jung=2 15:51:25 Vitals capture stopped. 15:54:27 [facility] Study - Contrast Media Used In Study Contrast Total Opened (mL) Total Used (mL) Total Wasted (mL) Omnipaque 65 65 0 End Study - Maximum Contrast Load Max Contrast Load (mL) 713.6 End Study - Radiation Exposure Fluoro Time (minutes) 2.7 End Study - Sheaths Sheaths Pulled By Sheath Hold Time (min) María De La O End Study - Patient Disposition Complications Transferred To Interventional Outcome No [employer] Holding No attempt made
--- NOTE | 2018-01-19 16:03 | MA ---
cc: Guzman Parks MD DATE: 01/19/2018 PROCEDURE PERFORMED: Left heart catheterization, selective coronary angiography, left ventriculography. PROCEDURE NOTES: The patient was brought to the cardiac catheterization laboratory in a fasting state after having signed informed consent. The right radial region was prepped and draped as per policy and anesthetized with 1% lidocaine. Arterial access was obtained via the right radial artery and a 6-English sheath placed. Coronary arteriography was performed using a Carlton catheter. There were no apparent immediate complications. A radial artery compression band was applied to the right wrist at the end of the case to achieve good hemostasis. HEMODYNAMIC DATA: Left ventricle 115 with an diastolic pressure less than 10. Aorta 127/65 with a mean of 86. There was no significant transvalvular aortic gradient on pullback of the pigtail catheter. CORONARY ARTERIOGRAPHY: The left main is normal. The left anterior descending has 10% stenosis proximally. There are minimal luminal irregularities in the mid LAD. The distal LAD and a large diagonal are normal. The left circumflex is a medium-sized vessel giving rise to a large obtuse marginal. This obtuse marginal has a 15% proximal stenosis. The rest of the left circumflex system is normal. The right coronary artery is a large, dominant vessel with minimal luminal irregularities in its midsection. LEFT VENTRICULOGRAPHY: Contrast injection of the left ventricle reveals no segmental wall motion abnormalities. Ejection fraction is estimated at 65%. CONCLUSIONS: 1. Minimal coronary artery disease. 2. Normal left ventricular function with estimated ejection fraction of 65%. Guzman Parks MD [facility]/KD , 03:52 PM , 03:59 PM AISHWARYA
[2018-01-19 16:05] VITALS: O2SAT 93
--- NOTE | 2018-01-19 16:53 | TR ---
Date Performed: 01/18/2018 Time Performed: 13:35:30 DOCTOR: Daija Lainez DRUG LIST: CLINICAL HISTORY: REASON FOR TEST: REASON FOR ENDING: OBSERVATION: CONCLUSION: Lexiscan stress test was performed under standard four minute protocol. Radionuclid e was injected one minute prior to ending the test. No electrocardiographic abormalities were present to suggest ischemia. Nuclear imaging and interpretation are pending. COMMENTS:
--- NOTE | 2018-01-19 16:57 | ECG ---
Date Performed: 01/18/2018 Time Performed: 01:42:16 PTAGE: 62 years EKG: Sinus rhythm RIGHT BUNDLE BRANCH BLOCK ABNORMAL ECG Since PREVIOUS TRACING , no significant change noted PREVIOUS TRACIN01/17/2018 22.46 DOCTOR: Daija Lainez Interpretating Date/Time 01/19/2018 16:55:30
--- NOTE | 2018-01-19 16:58 | ECG ---
Date Performed: 01/17/2018 Time Performed: 22:46:19 PTAGE: 62 years EKG: Sinus rhythm RIGHT BUNDLE BRANCH BLOCK ABNORMAL ECG Since PREVIOUS TRACING , no significant change noted PREVIOUS TRACIN01/17/2018 19.39 DOCTOR: Daija Lainez Interpretating Date/Time 01/19/2018 16:55:59
--- NOTE | 2018-01-19 16:59 | ECG ---
Date Performed: 01/17/2018 Time Performed: 19:39:09 PTAGE: 62 years EKG: Sinus rhythm RIGHT BUNDLE BRANCH BLOCK ABNORMAL ECG NO PREVIOUS TRACING DOCTOR: Daija Lainez Interpretating Date/Time 01/19/2018 16:57:20
[2018-01-19 18:22] LABS: Hemoglobin A1c 5.3 % (4.3-6.0)
== END 2018-01-19 18:40 | disposition home or self-care (01) ==
LOC: NEDA 18:57 → NEPE 18:57 → HCIS 18:57 → NEDA 01-18 01:44 → NEPFCDU 01-18 01:46 → HCIS 01-19 15:33
PROVIDERS: ADMIT Hospitalist; ATTEND Hospitalist